=== PATIENT | male | born 1960 ===

== ENCOUNTER 2018-01-05 09:09 | Emergency (ER) | payer MEDICAID ==
[2018-01-05 09:09] VITALS: BMI 26.2
[2018-01-05 09:21] VITALS: O2SAT 98
[2018-01-05 10:13] LABS: URINE BILIRUBIN NEGATIVE (NEGATIVE); URINE BLOOD NEGATIVE (NEGATIVE); URINE CLARITY Clear (Clear); URINE COLOR Straw (YELLOW); URINE GLUCOSE (UA) NORMAL (Normal); URINE LEUKOCYTE ESTERASE NEG Leu/uL (Negative); URINE PROTEIN NEGATIVE (NEGATIVE); URINE UROBILINOGEN NORMAL mg/dL (0.2-1.0)
--- NOTE | 2018-01-05 11:14 | C.PDOC ---
History Of Present Illness 57yo male, presents to ED with complaints of difficulty passing urine for the past 4 days. He reports he has to strain and has associated lower abdomen pain due to the straining. He also reports mild rectal pain which he attributes to hemorrhoids. Patient denies any fever, chills, vomiting or diarrhea. Patient was treated in this ER recently for epididimytis and states he completed the antibiotics treatment, but he still has mild swelling and pain to his right testicle. Patient denies any other medical complaints. pt has not yet followed up with urology. PMD: Non [facility] provider Time Seen by Provider: 01/05/18 09:29 Chief Complaint (Nursing): Male Genitourinary History Per: Patient History/Exam Limitations: no limitations Onset/Duration Of Symptoms: Days Current Symptoms Are (Timing): Still Present Associated Symptoms: denies: Fever, Chills, Nausea, Vomiting, Diarrhea Additional History Per: Patient Past Medical History Reviewed: Historical Data, Nursing Documentation, Vital Signs Vital Signs: Last Vital Signs Temp 98 F 01/05/18 14:36 Pulse 78 01/05/18 14:36 Resp 18 01/05/18 14:36 BP 126/74 01/05/18 14:36 Pulse Ox 98 01/06/18 14:58 - Medical History PMH: No Chronic Diseases Surgical History: No Surg Hx Family History: States: No Known Family Hx - Social History Hx Alcohol Use: No Hx Substance Use: No - Immunization History Hx Tetanus Toxoid Vaccination: No Hx Influenza Vaccination: No Hx Pneumococcal Vaccination: No Review Of Systems Constitutional: Negative for: Fever, Chills Gastrointestinal: Positive for: Abdominal Pain (lower), Rectal Pain Genitourinary: Positive for: Other (difficulty passing urine) Physical Exam - Physical Exam Appears: Non-toxic, No Acute Distress Skin: Normal Color, Warm, Dry Head: Atraumatic, Normacephalic Eye(s): bilateral: Normal Inspection Oral Mucosa: Moist Neck: Normal ROM, Supple Chest: Symmetrical Cardiovascular: Rhythm Regular Respiratory: Normal Breath Sounds Rectal: Hemorrhoids (small external hemorrhoid at 3'oclock position), Tenderness (mild tenderness), Other (feels like an enlarged prostate) Male Genital: Testicular Tenderness (left testicle non-tender, right testicle with minimal tenderness.), Testicular Swelling (right), No Inguinal Tenderness, No Inguinal Swelling, No Scrotal Swelling, No Circumcised, Other (easily retractable foreskin, no lesions noted. no penile discharge. no scrotal erythema , warmth or tenderness noted. chaperoned by KIKI Otto for exam) Extremity: Normal ROM Neurological/Psych: Oriented x3, Normal Speech, Normal Cognition Additional Physical Exam Comments: Rectal and genital exam done with KIKI Otto as dry sander ED Course And Treatment O2 Sat by Pulse Oximetry: 98 (RA) Pulse Ox Interpretation: Normal Medical Decision Making Medical Decision Making: Plan: -- Urinalysis -- US Testes -- Bladder scan 1415 pt with chronic epididyimitis on sonogram, no torsion. no uti, Pt with 400 ml on bladder scan. discussed with Dr Morocho. recommends pt be started on flomax and different antibiotic than cipro( has taken already 1-2 course of cipro for epididymitis) and f/u urology plan discussed with pt and he agrees. . Disposition Discussed With Dr.: Luis Morocho Jr. Counseled Patient/Family Regarding: Studies Performed, Diagnosis, Need For Followup, Rx Given - Disposition Referrals: Luis Morocho Jr., MD [Staff Provider] - Disposition: HOME/ ROUTINE Disposition Time: 14:29 Condition: GOOD Additional Instructions: Please take flomax and bacrtim as prescribed. Please follow up with Dr Morocho or urologist of your choice in the next few days. Return to ER for worse pain. unable to urinate. Prescriptions: Sulfamethoxazole/Trimethoprim [Bactrim DS 800 mg-160 mg] 1 tab PO BID #28 tab Tamsulosin [Flomax] 0.4 mg PO DAILY #30 cap Instructions: Epididymitis (DC) Forms: [facility] [facility] ([place]), General Discharge Instructions - Clinical Impression Clinical Impression: Urinary dysfunction, Epididymitis, right - PA / [employer] / Resident Statement MD/DO has reviewed & agrees with the documentation as recorded. - Scribe Statement The provider has reviewed the documentation as recorded by the Scribe (Carolina Landaverde) Provider Attestation: All medical record entries made by the Scribe were at my direction and personally dictated by me. I have reviewed the chart and agree that the record accurately reflects my personal performance of the history, physical exam, medical decision making, and the department course for this patient. I have also personally directed, reviewed, and agree with the discharge instructions and disposition.
--- NOTE | 2018-01-05 14:00 | US ---
HISTORY: right teste swelling. recent tx for epididymitis TECHNIQUE: Realtime sonography through the scrotum with color and doppler flow. COMPARISON: Scrotal ultrasound 12/02/2017 from [facility]. FINDINGS: RIGHT TESTICLE: Measures 4.6 x 2.1 x 3.2 cm. Normal echotexture and flow. RIGHT EPIDIDYMIS: Epididymal head measures 1.0 x 1.6 x 1.5 cm. Right epididymis is mildly enlarged with increased blood flow on color Doppler sonography suggesting epididymitis, chronic or recurrent. LEFT TESTICLE: Measures 4.6 x 1.9 x 2.8 cm. There is a 5 mm intratesticular cyst identified at the lower pole medially, simple appearing. A punctate calcification is seen at the midpole. The remainder of the left testicle is unremarkable. Intratesticular arterial blood flow is identified without evidence of torsion left testicle. LEFT EPIDIDYMIS: Epididymal head measures 1.1 x 1.3 x 1.2 cm. Normal blood flow however a 4 mm simple cysts is identified at the head.. HYDROCELE: Moderate right and minimal left hydroceles are identified. The right hydrocele is recurrent or diminished in volume. VARICOCELE: None. OTHER FINDINGS: Persistent or recurrent thickening in the right greater than left hemiscrotum soft tissues. IMPRESSION: 1. Persistent or recurrent right epididymitis. Interval small right epididymal cyst. 2. Recurrent or diminished right hydrocele. Stable trace left hydrocele. 3. Stable left testicular cyst and likely microlith as well. 4. No evidence of testicular torsion bilaterally. Persistent thickening of the scrotum soft tissues.
[2018-01-05 14:37] VITALS: BP 126/74; PULSE 78; RESP 18; TEMP 98
== END 2018-01-05 14:37 | disposition home or self-care (01) ==
LOC: C.ER 09:09
DX: N39.8 Other specified disorders of urinary system (principal); N45.1 Epididymitis